=== PATIENT | female | born 1995 | race African-American/Black ===

== ENCOUNTER 2018-03-30 17:45 | Emergency (ER) | payer OTHER ==
[~2018-03-30] VITALS: Ht 175.3 cm; Wt 63.7 kg
[2018-03-30 18:06] VITALS: BP 108/75
[2018-03-30] MEDS ORDERED: LIDOCAINE 1%-EPI 1:100K, 30ML ONE (18:24)
[2018-03-30] MEDS ORDERED: DIPH,PERTUSS(ACELL),TET VAC/PF 0.5 ML IM-VACC ONE ×2 (18:24→18:30)
[2018-03-30] MEDS ORDERED: LIDOCAINE 1%-EPI 1:100K, 20ML SQ ONE (18:30)
[2018-03-30] MEDS ORDERED: BACITRACIN ZINC OINT 500U/GM, 0.9 GM ONE (19:10)
== END 2018-03-30 19:26 | disposition home or self-care (01) ==
LOC: ED 19:20
DX: S71.111A Laceration without foreign body, right thigh, initial encounter (principal); V19.60XA Unspecified pedal cyclist injured in collision with unspecified motor vehicles in traffic accident, initial encounter; Y93.55 Activity, bike riding; Y99.8 Other external cause status; Y92.89 Other specified places as the place of occurrence of the external cause
CPT/HCPCS: 12002; 90471; 90715; 99283; J3490